=== PATIENT | male | born 1935 | race Caucasian/White ===

== ENCOUNTER 2016-04-26 09:03 | Day surgery (SDC) | payer MEDICARE, OTHER ==
--- NOTE | ~2016-04-26 | EGD ---
EGD REPORT [facility] [address] [place] [address] NAME: DEENA BAUER : 33 STATUS : REG [facility] PAT#: [id number] AGE: 80 ADM/REG DATE : 04/26/16 MR#: [id number] REPORT SERV DATE: 04/26/16 DICTATED BY: ANGELA MCKEON DATE: 04/26/16 REPORT STATUS : Draft TRANSCRIBED BY: [facility] DATE: 04/26/16 [facility] Patient Name: Deena Bauer Date of : 1935 Attending MD: ANGELA MCKEON MD Procedure Date No Time: 04/26/2016 Procedure: Colonoscopy Indications: Screening in patient at increased risk: Colorectal cancer in sister 60 or older, Last colonoscopy: March 2013 Referring MD: KISHA YOST MD Medicines: Propofol per Anesthesia Complications: No immediate complications. Estimated blood loss: None. Procedure: Pre-Anesthesia Assessment: - After reviewing the risks and benefits, the patient was deemed in satisfactory condition to undergo the procedure. - Prior to the procedure, a History and Physical was performed, and patient medications and allergies were reviewed. The patient's tolerance of previous anesthesia was also reviewed. The risks and benefits of the procedure and the sedation options and risks were discussed with the patient. All questions were answered, and informed consent was obtained. Prior Anticoagulants: The patient has taken no previous anticoagulant or antiplatelet agents. ASA Grade Assessment: III - A patient with severe systemic disease. After reviewing the risks and benefits, the patient was deemed in satisfactory condition to undergo the procedure. After I obtained informed consent, the scope was passed under direct vision. Throughout the procedure, the patient's blood pressure, pulse, and oxygen saturations were monitored continuously. The CF [id number] was introduced through the anus and advanced to the cecum, identified by appendiceal orifice and ileocecal valve. The colonoscopy was somewhat difficult due to inadequate bowel prep and a tortuous colon. Successful completion of the procedure was aided by straightening and shortening the scope to obtain bowel loop reduction, applying abdominal pressure and lavage. The ileocecal valve and appendiceal orifice were photographed. The patient tolerated the procedure well. The quality of the bowel preparation was fair. The bowel preparation used was polyethylene glycol (PEG). Scope withdrawal time was EGD REPORT [address] [address] NAME: DEENA BAUER : 33 STATUS : REG [facility] PAT#: [id number] AGE: 80 ADM/REG DATE : 04/26/16 MR#: [id number] REPORT SERV DATE: 04/26/16 DICTATED BY: ANGELA MCKEON DATE: 04/26/16 REPORT STATUS : Draft TRANSCRIBED BY: [employer] DATE: 04/26/16 greater than 8 minutes. Findings: The perianal and digital rectal examinations were normal. Pertinent negatives include normal sphincter tone. Non-bleeding internal hemorrhoids were found during retroflexion and were small and Grade I (internal hemorrhoids that do not prolapse). Multiple small-mouthed diverticula were found in the sigmoid colon, in the descending colon and in the transverse colon. The exam was otherwise without abnormality. Impression: - Non-bleeding internal hemorrhoids. - Moderate diverticulosis in the sigmoid colon, in the descending colon and in the transverse colon. - The examination was otherwise normal. Recommendation: - Discharge patient to home (ambulatory). - High fiber diet indefinitely. - Continue present medications. - Resume Plavix (clopidogrel) at prior dose today. - No further routine screening or surveillance colonoscopy due to advanced age. - Patient has a contact number available for emergencies. The signs and symptoms of potential delayed complications were discussed with the patient. Return to normal activities tomorrow. Written discharge instructions were provided to the patient. Procedure Code(s): --- Professional --- G0105, Colorectal cancer screening; colonoscopy on individual at high risk Diagnosis Code(s): --- Professional --- K64.0, First degree hemorrhoids K57.30, Diverticulosis of large intestine without perforation or abscess without bleeding Z12.11, Encounter for screening for malignant neoplasm of colon Z80.0, Family history of malignant neoplasm of digestive organs CPT copyright 2013 [employer]. All rights reserved. The codes documented in this report are preliminary and upon teaching dietitian review may be revised to meet current compliance requirements. EGD REPORT [facility] [address] [facility] [address] NAME: DEENA BAUER : [birth year] STATUS : REG [facility] PAT#: [id number] AGE: 80 ADM/REG DATE : 04/26/16 MR#: [id number] REPORT SERV DATE: 04/26/16 DICTATED BY: ANGELA MCKEON DATE: 04/26/16 REPORT STATUS : Draft TRANSCRIBED BY: [employer] DATE: 04/26/16 ANGELA MCKEON MD 04/26/2016 11:50 AM This report has been signed electronically. Number of Addenda: 0 Note Initiated On: 04/26/2016 11:29 AM Scope Withdrawal Time 0 hours 8 minutes 10 seconds [address] [place] [address]
[~2016-04-26 09:03] MED LIST: ALEVE220 MG PO; ATV.5 PO; CENTRUM TAB1 TAB PO; CYANO1000T PO; DILT-XR120 MG PO; MULTI-VIT HP PO; PEP20 PO; PLAVIX PO; PROSCAR5 PO; SUPER B COMP OR; TIMOLOL MAL0.25 % OPH; XALAT OPH; ZYRTEC ALLGY10 MG PO
== END 2016-04-26 23:59 | disposition home or self-care (01) ==
LOC: DMU 09:03
PROVIDERS: Internal Medicine Gastroenterology
PROC: 0DJD8ZZ Inspection of Lower Intestinal Tract, Via Natural or Artificial Opening Endoscopic (ICD-10-PCS; principal; 2016-04-26 10:45)
DX: Z12.11 Encounter for screening for malignant neoplasm of colon (principal); K64.0 First degree hemorrhoids; K57.30 Diverticulosis of large intestine without perforation or abscess without bleeding; K21.9 Gastro-esophageal reflux disease without esophagitis; I10 Essential (primary) hypertension; M19.90 Unspecified osteoarthritis, unspecified site; H40.9 Unspecified glaucoma; Z80.0 Family history of malignant neoplasm of digestive organs; Z86.73 Personal history of transient ischemic attack (TIA), and cerebral infarction without residual deficits; Z87.442 Personal history of urinary calculi; Z88.0 Allergy status to penicillin; Z88.2 Allergy status to sulfonamides; Z79.1 Long term (current) use of non-steroidal anti-inflammatories (NSAID); Z79.02 Long term (current) use of antithrombotics/antiplatelets; Z79.899 Other long term (current) drug therapy; Z96.1 Presence of intraocular lens; Z98.41 Cataract extraction status, right eye; Z98.42 Cataract extraction status, left eye; Z98.890 Other specified postprocedural states
CPT/HCPCS: J2405